=== PATIENT | female | born 1975 | race Hispanic/Latino ===

== ENCOUNTER 2019-09-19 12:06 | Emergency (ER) | payer SELFPAY ==
--- NOTE | ~2019-09-19 | CT_ITS ---
EXAMINATION: CT abdomen pelvis wo con DATE: 09/19/2019 12:52 INDICATION: Right lower quadrant abdominal pain. TECHNIQUE: Computed tomography (CT) of the abdomen and pelvis was performed without intravenous contr ast. Automated exposure control and iterative reconstruction technique were employed. The dose-length product was 651.11 mGy-cm. COMPARISON: 09/18/2016 FINDINGS: Lung bases are clear. Heart size is normal. No pericardial or pleural effusion. Diffuse mild hepatic steatosis with focal sparing along the gallbladder fossa. Gallbladder, spleen, pancreas, bilateral ad renal glands and kidneys are normal. Bowels including the appendix are normal. Bladder, anteverted ut erus and bilateral adnexa are unremarkable. No free intraperitoneal gas or fluid. No pathologically e nlarged abdominal or pelvic lymphadenopathy. Small fat-containing left inguinal hernia. Mild thoracol umbar spondylosis. IMPRESSION: 1. No acute intra-abdominal/pelvic process. Specifically no urolithiasis and normal gallbladder and a ppendix. Reviewed, dictated and finalized at location A. IMPRESSION: 1. No acute intra-abdominal/pelvic process. Specifically no urolithiasis and no rmal gallbladder and appendix.
--- NOTE | 2019-09-19 12:11 | PC.NURSE ---
Patient to bathroom to provide urine at this time.
[2019-09-19 12:12] VITALS: BP 147/68; PULSE 79; RESP 15; TEMP 36.7; O2SAT 99
[2019-09-19] MEDS: SODIUM CHLORIDE 0.9% IV 1,000 ML 999 ML IV CONT (12:32)
[2019-09-19] MEDS: ONDANSETRON INJ 4 MG/2 ML VIAL IV PUSH (12:32)
[2019-09-19] MEDS: FAMOTIDINE 20 MG/2 ML VIAL IV PUSH (12:32)
[2019-09-19 12:34] LABS: Basophils Percent Auto 0.6 % (0.2-1.2); Eosinophils Absolute Auto 0.1 K/mm3 (0-0.3); Hematocrit 41.5 % (37.0-47.0); Hemoglobin 13.6 g/dL (12.0-15.0); Immature Granulocyte Absolute 0.03 K/mm3 (0.00-0.031); Immature Granulocyte Percent A 0.4 % (0-0.5); Lymphocytes Absolute Auto 1.84 K/mm3 (0.9-3.2); Lymphocytes Percent Auto 26.1 % (18.3-44.2); Mean Corpuscular HGB Conc 32.8 g/dl (32-36); Mean Corpuscular Hemoglobin 28.1 pg (26-34); Mean Corpuscular Volume 85.7 fl (80-100); Monocytes Absolute Auto 0.5 K/mm3 (0.1-0.6); Monocytes Percent Auto 7.1 % (2.6-8.5); Neutrophils Absolute Auto 4.6 K/mm3 (1.3-6.7); Neutrophils Percent Auto 64.8 % (45.5-73.1); Platelet Count Result 295 k/mm3 (150-375); Red Blood Count 4.84 M/mm3 (4.2-5.4); Red Cell Distribution Width 11.9 % (11.5-14.5)
[2019-09-19 12:38] LABS: Add Urine Microscopic? YES; Appearance Urine Clear (Clear); Bacteria Urine Trace /hpf; Bilirubin Urine Negative (Negative); Blood Urine Negative (Negative); Calcium Oxalate Crystals Urine Present /hpf; Color Urine Yellow (Yellow); Glucose Urine UA 3+ mg/dL (Negative); Ketones Urine Negative (Negative); Leukocyte Esterase Ur Negative LEU/UL (Negative); Mucus Urine Few /lpf; Nitrate Urine Negative (Negative); Protein Urine 1+ mg/dL (Negative); Squamous Epithelial Cell Urine Many /hpf (Few); Urobilinogen Urine Negative mg/dL (<2.0); WBC Urine 0-3 /hpf
[2019-09-19 12:47] LABS: Alanine Aminotransferase 28 U/L (4-35); Albumin Level 4.6 g/dL (3.5-5.1); Alkaline Phosphatase 60 U/L (38-126); Aspartate Amino Transferase 31 U/L (14-36); Bilirubin,Total 0.5 mg/dL (0.2-1.3); Blood Urea Nitrogen 9 mg/dL (7-17); Calcium 9.7 mg/dL (8.4-10.2); Carbon Dioxide 23 mmol/L (22-30); Chloride 99 mmol/L (98-107); Estimated CRCL calculation 154 ml/min; Estimated Glomerular Filt Rate > 60; Glucose 201 mg/dL (65-105); Lipase 100 U/L (23-300); Potassium 4.1 mmol/L (3.4-5.0); Sodium 134 mmol/L (137-145)
--- NOTE | 2019-09-19 13:25 | ED.ABDPAIN ---
HPI - Abdominal Pain General Chief Complaint: Abdominal Pain Stated Complaint: Abd pain Time Seen by Provider: 09/19/19 12:12 Source: patient Mode of arrival: ambulatory Limitations: no limitations History of Present Illness HPI narrative: Patient is a 43-year-old female who presents with 1 week duration of right flank pain for the last week noting intermittent sharp pain that worsened today. Patient notes associated nausea and states she has had some urinary symptoms such as frequency. Patient has not taken anything for symptoms a scheduled to see primary care tomorrow. Patient denies any bowel habit changes rectal bleeding melena or URI symptoms Related Data Home Medications Medication Instructions Recorded Confirmed atorvastatin 09/19/19 citalopram mg 09/19/19 pioglitazone mg 09/19/19 Allergies Allergy/AdvReac Type Severity Reaction Status Date / Time No Known Allergies Allergy Verified 09/18/16 14:55 Review of Systems Review of Systems: All systems reviewed & are unremarkable except as noted in HPI and below PMFSH Past Medical History Medical History (Updated 09/19/19 @ 13:40 by Erwin Urias PA-C) Hypertension Surgical History Surgical History (Updated 09/19/19 @ 13:27 by Erwin Urias PA-C) H/O tubal ligation Social History Social History Gender identity (if verbalized by the patient): Female Exam Narrative: Exam Narrative: GENERAL: Well-appearing, well-nourished, and in no acute distress. HEAD: Normocephalic, atraumatic. EYES: PERRLA and EOMI. ENT: Nares clear, no rhinorrhea or epistaxis. Mucous membranes moist. CHEST: Clear to auscultation. No respiratory distress. No wheezes rales or rhonchi HEART: Regular rate and rhythm. No murmur heard. Normal peripheral pulses. ABDOMEN: Soft, nontender, nondistended EXTREMITIES: Normal range of motion. No edema. SKIN: Warm, dry, no rash. NEURO: No focal deficits. Alert and oriented x3. Cranial nerves II through XII grossly intact PSYCH: Normal mood and affect. Course Course Emergency Course: Patient in the room in no distress aware of case findings treatment plan and diagnosis agreeing to follow-up as directed Vital Signs Vital signs: Vital Signs Temperature 98.1 F 09/19/19 12:12 Pulse Rate 79 09/19/19 12:12 Respiratory Rate 15 09/19/19 12:12 Blood Pressure 147/68 H 09/19/19 12:12 Pulse Oximetry 99 09/19/19 12:12 Temperature 98.1 F 09/19/19 12:12 Pulse Rate 79 09/19/19 12:12 Respiratory Rate 15 09/19/19 12:12 Blood Pressure 147/68 H 09/19/19 12:12 Pulse Oximetry 99 09/19/19 12:12 MDM - Abdominal Pain MDM Narrative Medical decision making narrative: Patient with flank pain of unknown etiology afebrile nontoxic-appearing no distress felt appropriate for outpatient reevaluation scheduled to see primary care tomorrow provided with reasons to return. No high risk changes in the blood work or imaging Lab Data Result diagrams: 09/19/19 12:28 09/19/19 12:28 Labs: Lab Results 09/19/19 09/19/19 09/19/19 Range/Units 12:28 12:28 12:28 WBC 7.0 (4.5-10.0) K/mm3 RBC 4.84 (4.2-5.4) M/mm3 Hgb 13.6 (12.0-15.0) g/dL Hct 41.5 (37.0-47.0) % MCV 85.7 (80-100) fl MCH 28.1 (26-34) pg MCHC 32.8 (32-36) g/dl RDW 11.9 (11.5-14.5) % Plt Count 295 (150-375) k/mm3 MPV 11.0 H (7.4-10.4) fl Immature Gran % (Auto) 0.4 (0-0.5) % Neut % (Auto) 64.8 (45.5-73.1) % Lymph % (Auto) 26.1 (18.3-44.2) % [place] % (Auto) 7.1 (2.6-8.5) % Eos % (Auto) 1.0 (0-4.4) % Baso % (Auto) 0.6 (0.2-1.2) % Lymph # (Auto) 1.84 (0.9-3.2) K/mm3 [place] # (Auto) 0.5 (0.1-0.6) K/mm3 Eos # (Auto) 0.1 (0-0.3) K/mm3 Baso # (Auto) 0.0 (0.0-0.1) K/mm3 Abs Immat Gran (auto) 0.03 (0.00-0.031) K/mm3 Absolute Neuts (auto) 4.6 (1.3-6.7) K/mm3 Absolute Nucl
[2019-09-19 13:50] VITALS: BP 108/47; PULSE 64; RESP 12; O2SAT 98
[2019-09-19] MEDS: KETOROLAC 30 MG/ML VIAL (*BKC) IV PUSH (13:52)
== END 2019-09-19 13:52 | disposition home or self-care (01) ==
PROVIDERS: Emergency Medicine Emergency Medical Services; Emergency Provider Emergency Medicine
DX: R10.9 Unspecified abdominal pain (principal); I10 Essential (primary) hypertension
CPT/HCPCS: 36415; 74176; 80053; 81001; 81025; 83690; 85025; 96361; 96365; 96375; 99284; J0131; J1885; J2405; J7030

== ENCOUNTER 2020-05-07 13:25 | Emergency (ER) | payer SELFPAY ==
[2020-05-07 13:29] VITALS: BP 149/73; PULSE 84; RESP 20; TEMP 36.3; O2SAT 97
== END 2020-05-07 14:00 | disposition left against medical advice (07) ==
LOC: ANHED 15:27
DX: M25.511 Pain in right shoulder (principal)
CPT/HCPCS: 99199

== ENCOUNTER 2021-03-26 11:11 | Emergency (ER) | payer SELFPAY ==
--- NOTE | ~2021-03-26 | XR_ITS ---
EXAMINATION: XR chest 1V portable EXAM DATE: 03/26/2021 12:04 INDICATION: Persistent cough. TECHNIQUE: Portable AP frontal chest x-ray was obtained. There is no prior study for comparison. FINDINGS: The lungs are clear. There are no pleural effusions. The cardiomediastinal silhouette is within normal limits. There is no pneumothorax suspected. The bones and soft tissues are unremarkab le. IMPRESSION: No acute cardiopulmonary findings. Reviewed, dictated and finalized at location A.
--- NOTE | ~2021-03-26 | US_ITS ---
EXAMINATION: US abdomen limited EXAM DATE: 03/26/2021 12:03 INDICATION: RUQ abd pain eval for selene RUQ PAIN. TECHNIQUE: Multiple grayscale and Doppler images of the abdomen right upper quadrant were obtained (b y a technologist who performed the scan) and subsequently reviewed. There is no prior study for juanito kim. FINDINGS: The pancreatic head and body are normal in appearance. The pancreatic tail is not visualized. There is echogenic liver parenchyma, hepatic steatosis. There are no focal liver lesions identified. Th ere is no evidence of intrahepatic biliary duct dilation. Portal venous flow was seen in the hepatop edal, normal direction and has normal Doppler waveform. No right-sided hydronephrosis. Common bile duct measures 3 mm, which is normal. The gallbladder wall is normal in thickness, with ex pected amount of distention. No sonographic evidence of pericholecystic fluid. There is no cholelit hiases. Technologist performing exam reports patient did not demonstrate sonographic Rendon's sign. Please note that this sign is less reliable in patients who have received pain medication. IMPRESSION: 1. Hepatic steatosis. Reviewed, dictated and finalized at location A. IMPRESSION: 1. Hepatic steatosis.
[2021-03-26 11:16] VITALS: BP 127/53; PULSE 66; RESP 16; TEMP 36.7; O2SAT 100
--- NOTE | 2021-03-26 11:32 | ED.URI ---
HPI - URI/Sore Throat General Chief Complaint: Nausea/Vomiting/Diarrhea Stated Complaint: chest pain, coughing Time Seen by Provider: 03/26/21 11:16 History of Present Illness HPI Narrative: Patient presents with not feeling well. Patient reports she started to have right-sided abdominal pain associated with nausea, vomiting, diarrhea. Symptoms started approximately 7 days ago yesterday she noted fevers cough and congestion concerned so she came into the ER for evaluation. Reports she has completed her Covid vaccination series and was diagnosed with Covid 6 months ago. Related Data Home Medications Medication Instructions Recorded Confirmed atorvastatin 09/19/19 citalopram mg 09/19/19 pioglitazone mg 09/19/19 Allergies Allergy/AdvReac Type Severity Reaction Status Date / Time No Known Allergies Allergy Verified 09/18/16 14:55 Review of Systems Review of Systems: CONSTITUTIONAL: Denies fever, chills, or sweats. EYES: Denies visual changes, redness, or discharge. ENT: Denies rhinorrhea, congestion, sore throat, or otalgia. CARDIOVASCULAR: Denies chest pain, palpitations, or edema. RESPIRATORY: Reports cough and shortness of breath GASTROINTESTINAL: Reports abdominal pain nausea, vomiting, diarrhea GENITOURINARY: Denies dysuria or hematuria. SKIN: Denies rash or itching. MUSCULOSKELETAL: Denies back pain, joint pain, or myalgia. NEUROLOGIC: Denies headache, numbness, dizziness, or weakness. PSYCHIATRIC: Denies anxiety or depression. All systems reviewed & are unremarkable except as noted in HPI and below PMFSH Past Medical History Medical History Hypertension Surgical History Surgical History H/O tubal ligation Social History Social History Gender identity (if verbalized by the patient): Female Exam Narrative: GENERAL: Well-appearing, well-nourished, and in no acute distress. HEAD: Normocephalic, atraumatic. EYES: PERRLA and EOMI. ENT: Nares clear, no rhinorrhea or epistaxis. Mucous membranes moist. NECK: Supple. No masses. No JVD CHEST: Clear to auscultation. No respiratory distress. No wheezes rales or rhonchi HEART: Regular rate and rhythm. No murmur heard. Normal peripheral pulses. ABDOMEN: Moderate tenderness in the right upper quadrant no rebound or guarding soft, nondistended bowel sounds. EXTREMITIES: Normal range of motion. No edema. SKIN: Warm, dry, no rash. NEURO: No focal deficits. Alert and oriented x3. PSYCH: Normal mood and affect. Course Reevaluation(s) Reevaluation #1: Patient resting comfortably results and plan reviewed with patient. Patient comfortable with outpatient plan. Date: 03/26/21 Time: 12:39 Vital Signs Vital signs: Vital Signs Temperature 36.7 C 03/26/21 11:16 Pulse Rate 66 03/26/21 11:16 Respiratory Rate 16 03/26/21 11:16 Blood Pressure 127/53 L 03/26/21 11:16 Pulse Oximetry 100 03/26/21 11:16 Temperature 36.7 C 03/26/21 11:16 Pulse Rate 74 03/26/21 14:08 Respiratory Rate 16 03/26/21 14:08 Blood Pressure 122/76 03/26/21 14:08 Pulse Oximetry 98 03/26/21 14:08 MDM - URI/Sore Throat MDM Narrative Medical decision making narrative: H&P as above, vss, pt looks clinically well, exam with tenderness in right upper quadrant, labs with mild elevation LFTs, Covid swab pending, img unremarkable for acute process, additional labs/img considered, symptomatic relief available as needed, on reevaluation pt continues to looks clinically well. Suspect viral process, dns perforation, pancreatitis, cholecystitis, severe sepsis, small bowel obstruction. plan to tx/monitor as op w/ pcm f/u findings/plan discussed with pt, pt agree/comfortable with plan, return precautions given Lab Data Result diagrams: 03/26/21 11:26 03/26/21 11:26 Labs: Lab Result
[2021-03-26 11:49] LABS: Alanine Aminotransferase 60 U/L (4-35); Albumin Level 4.6 g/dL (3.5-5.1); Alkaline Phosphatase 60 U/L (38-126); Anion Gap 10 mmol/L (8-16); Aspartate Amino Transferase 55 U/L (14-36); Bilirubin,Total 0.7 mg/dL (0.2-1.3); Blood Urea Nitrogen 11 mg/dL (7-17); Calcium 8.8 mg/dL (8.4-10.2); Carbon Dioxide 25 mmol/L (22-30); Chloride 101 mmol/L (98-107); Estimated CRCL calculation 150 ml/min; Estimated Glomerular Filt Rate > 60; Glucose 163 mg/dL (65-110); Lipase 86 U/L (23-300); Sodium 136 mmol/L (137-145)
[2021-03-26 12:18] LABS: Basophils Percent Auto 0.4 % (0.2-1.2); Eosinophils Absolute Auto 0.1 K/mm3 (0-0.3); Eosinophils Percent Auto 1.7 % (0-4.4); Hematocrit 37.8 % (37.0-47.0); Hemoglobin 13.2 g/dL (12.0-15.0); Immature Granulocyte Absolute 0.03 K/mm3 (0.00-0.031); Immature Granulocyte Percent A 0.4 % (0-0.5); Lymphocytes Absolute Auto 1.92 K/mm3 (0.9-3.2); Lymphocytes Percent Auto 25.2 % (18.3-44.2); Mean Corpuscular HGB Conc 34.9 g/dl (32-36); Mean Corpuscular Hemoglobin 29.4 pg (26-34); Mean Corpuscular Volume 84.2 fl (80-100); Mean Platelet Volume 10.4 fl (7.4-10.4); Monocytes Absolute Auto 0.5 K/mm3 (0.1-0.6); Neutrophils Percent Auto 65.3 % (45.5-73.1); Platelet Count Result 308 k/mm3 (150-375); Red Blood Count 4.49 M/mm3 (4.2-5.4); Red Cell Distribution Width 11.5 % (11.5-14.5); White Blood Count 7.6 K/mm3 (4.5-10.0)
[2021-03-26 12:40] LABS: Add Urine Microscopic? YES; Appearance Urine Cloudy (Clear); Bacteria Urine 4+ /hpf; Bilirubin Urine Negative (Negative); Blood Urine Negative (Negative); Color Urine Yellow (Yellow); Glucose Urine UA 1+ mg/dL (Negative); Ketones Urine Negative (Negative); Leukocyte Esterase Ur Trace LEU/UL (Negative); Nitrate Urine Positive (Negative); Protein Urine 1+ mg/dL (Negative); RBC Urine 0-2 /hpf (0-2); Specific Grav Ur 1.025 (1.001-1.035); Squamous Epithelial Cell Urine Many /hpf (Few); Urobilinogen Urine Negative mg/dL (<2.0); WBC Urine 21-30 /hpf
[2021-03-26] MEDS: KETOROLAC 15 MG/ML VIAL (*BKC) IV PUSH (13:01)
[2021-03-26] MEDS: ONDANSETRON INJ 4 MG/2 ML VIAL IV PUSH (13:01)
[2021-03-26] MEDS: SODIUM CHLORIDE 0.9% IV 1,000 ML 999 ML IV CONT (13:01)
[2021-03-26 14:08] VITALS: BP 122/76; PULSE 74; RESP 16; O2SAT 98
[2021-03-27 16:55] LABS: SARS-CoV-2 RNA PCR Negative
== END 2021-03-26 14:10 | disposition home or self-care (01) ==
PROVIDERS: Emergency Provider Emergency Medicine
DX: N39.0 Urinary tract infection, site not specified (principal); R10.11 Right upper quadrant pain; R11.2 Nausea with vomiting, unspecified; Z20.822 Contact with and (suspected) exposure to COVID-19; Z86.16 Personal history of COVID-19; I10 Essential (primary) hypertension; K76.0 Fatty (change of) liver, not elsewhere classified
CPT/HCPCS: 36415; 71045; 76705; 80053; 81001; 81025; 83690; 85025; 87077; 87086; 87088; 87186; 96361; 96374; 96375; 99284; C9803; J1885; J2405; J7030; U0003; U0005

== ENCOUNTER 2022-06-17 12:22 | Emergency (ER) | payer SELFPAY ==
--- NOTE | ~2022-06-17 | XR_ITS ---
XR chest 2V DATE: 06/17/2022 13:14 INDICATION: Left chest pain. History of hypertension, diabetes. TECHNIQUE: AP and lateral views COMPARISON: 03/26/2021 portable AP chest FINDINGS: Normal heart size. No hilar or mediastinal enlargement. No pulmonary infiltrate or consolid ation, pleural effusion or pulmonary vascular congestion or pneumothorax. Included skeletal structures are unremarkable. IMPRESSION: No active cardiopulmonary disease Reviewed, dictated and finalized at location B. [employer]
--- NOTE | 2022-06-17 12:22 | ECG_ITS ---
Measurements Intervals [place] Rate: 88 P: 57 WI: 154 QRS: 35 QRSD: 72 T: 55 QT: 349 QTc: 423 Interpretive Statements SINUS RHYTHM NO PREVIOUS ECG AVAILABLE FOR COMPARISON Electronically Signed On 06-17-2022 18:00:52 DOOR PULLER by Eduardo Reddy M.D.
[2022-06-17 12:24] VITALS: BP 127/77; PULSE 99; RESP 16; TEMP 36.5; O2SAT 100
[2022-06-17 13:07] LABS: Basophils Absolute Auto 0.1 K/mm3 (0.0-0.1); Basophils Percent Auto 0.6 % (0.2-1.2); Eosinophils Absolute Auto 0.1 K/mm3 (0-0.3); Eosinophils Percent Auto 0.8 % (0-4.4); Hematocrit 44.9 % (37.0-47.0); Hemoglobin 14.9 g/dL (12.0-15.0); Immature Granulocyte Absolute 0.03 K/mm3 (0.00-0.031); Immature Granulocyte Percent A 0.3 % (0-0.5); Lymphocytes Absolute Auto 2.41 K/mm3 (0.9-3.2); Lymphocytes Percent Auto 27.6 % (18.3-44.2); Mean Corpuscular HGB Conc 33.2 g/dl (32-36); Mean Corpuscular Hemoglobin 28.8 pg (26-34); Mean Corpuscular Volume 86.8 fl (80-100); Mean Platelet Volume 9.9 fl (7.4-10.4); Monocytes Absolute Auto 0.6 K/mm3 (0.1-0.6); Monocytes Percent Auto 6.6 % (2.6-8.5); Neutrophils Absolute Auto 5.6 K/mm3 (1.3-6.7); Neutrophils Percent Auto 64.1 % (45.5-73.1); Platelet Count Result 350 k/mm3 (150-375); Red Blood Count 5.17 M/mm3 (4.2-5.4); Red Cell Distribution Width 11.9 % (11.5-14.5); White Blood Count 8.7 K/mm3 (4.5-10.0)
[2022-06-17 13:17] LABS: Alanine Aminotransferase 58 U/L (6-35); Alkaline Phosphatase 71 U/L (38-126); Anion Gap 12 mmol/L (8-16); Aspartate Amino Transferase 52 U/L (14-36); Bilirubin,Total 0.7 mg/dL (0.2-1.3); Blood Urea Nitrogen 10 mg/dL (7-17); Calcium 8.7 mg/dL (8.4-10.2); Carbon Dioxide 20 mmol/L (22-30); Chloride 101 mmol/L (98-107); Estimated CRCL calculation 146 ml/min; Estimated Glomerular Filt Rate > 60; Glucose 132 mg/dL (65-110); Lipase 120 U/L (23-300); Potassium 3.7 mmol/L (3.4-5.0); Sodium 133 mmol/L (137-145)
[2022-06-17 13:26] LABS: Partial Thromboplastin Time 31.6 SECONDS (22.3-36.8); Prothrombin Time 13.1 Seconds (11.1-14.7)
[2022-06-17 13:29] LABS: Troponin I < 0.012 ng/mL (0.000-0.034)
[2022-06-17 16:12] LABS: Troponin I < 0.012 ng/mL (0.000-0.034)
[2022-06-17 18:29] VITALS: BP 129/66; PULSE 81; TEMP 36.2; O2SAT 100
[2022-06-17 18:58] LABS: Troponin I 0.023 ng/mL (0.000-0.034)
[2022-06-17 20:03] VITALS: BP 135/77; PULSE 84; RESP 14; O2SAT 98
--- NOTE | 2022-06-17 20:25 | ED.CHESTPAIN ---
HPI - Chest Pain General Chief Complaint: Chest Pain Stated Complaint: chest pain Time Seen by Provider: 06/17/22 20:25 Source: patient and family Mode of arrival: ambulatory Limitations: no limitations History of Present Illness HPI narrative: 46 years old female brought to the emergency room by private car from work because of left chest pain that started this morning. While vacuuming. History of left shoulder pain of unknown etiology, was seen by a chiropractor few days ago, had x-ray done at that time, was seen by her family physician yesterday and started on Flexeril and to follow-up with her in 2 weeks. Patient denies any fever, chills, nausea, vomiting, shortness of breath, back pain. Patient reports the shoulder pain and left chest pain worse with certain movement, position. And get better laying down still.. Patient does not smoke, no family history of coronary artery disease, history of diabetes and hyperlipidemia. Related Data Home Medications Medication Instructions Recorded Confirmed atorvastatin 40 mg tablet 09/19/19 citalopram 40 mg tablet mg 09/19/19 pioglitazone 30 mg tablet mg 09/19/19 Allergies Allergy/AdvReac Type Severity Reaction Status Date / Time No Known Allergies Allergy Verified 09/18/16 14:55 Review of Systems Review of Systems: All systems reviewed & are unremarkable except as noted in HPI and below PMFSH Past Medical History Medical History Hypertension Surgical History Surgical History H/O tubal ligation Social History Social History Gender identity (if verbalized by the patient): Female Exam Narrative: General appearance: Well-developed, well-nourished Skin: Normal color Head: Normocephalic, nontraumatic Eyes: Clear conjunctiva ENT: Oropharynx normal, ears normal, nose normal Neck: Supple, nontender Chest and respiratory: Airway patent, no respiratory distress, no accessory muscle use, diffuse tenderness left upper chest with light palpation, no bruises, no swelling or rash. Heart: Regular rate/rhythm Abdomen: Soft, nontender, no organomegaly, quiet bowel sounds Vascular: Normal peripheral pulses, normal capillary refill. Musculoskeletal: Painful range of motion of left shoulder, no swelling, no bruises, no rash. Neurologic: Alert and oriented ?3, SPINNER OPEN END is normal as tested, no gross motor deficit Course Course Emergency Course: Left shoulder and left chest pain. Musculoskeletal cause is my concern. Patient started yesterday on Flexeril, does not take any Tylenol or anti-inflammatory medication at home yet. Work-up today showed no significant finding, cardiac score is 2. I plan to discharge patient home, excuse off work for 2 days, start naproxen and follow-up with family physician for further evaluation of the left shoulder which probably need MRI to rule out the possibility of rotator cuff injury Vital Signs Vital signs: Vital Signs Temperature 36.5 C 06/17/22 12:24 Pulse Rate 99 06/17/22 12:24 Respiratory Rate 16 06/17/22 12:24 Blood Pressure 127/77 06/17/22 12:24 Pulse Oximetry 100 06/17/22 12:24 Oxygen Delivery Room Air 06/17/22 12:24 Temperature 36.2 C L 06/17/22 18:29 Pulse Rate 84 06/17/22 20:03 Respiratory Rate 14 06/17/22 20:03 Blood Pressure 135/77 06/17/22 20:03 Pulse Oximetry 98 06/17/22 20:03 Oxygen Delivery Room Air 06/17/22 12:24 MDM - Chest Pain Differential Diagnosis Differential diagnosis: Likely atypical chest pain, costochondritis and chest pain Lab
== END 2022-06-17 20:49 | disposition home or self-care (01) ==
PROVIDERS: Emergency Medicine; Emergency Provider Emergency Medicine
DX: R07.9 Chest pain, unspecified (principal); I10 Essential (primary) hypertension
CPT/HCPCS: 36415; 71046; 80053; 83690; 84484; 85025; 85610; 85730; 93005; 99284

== ENCOUNTER 2023-03-11 13:44 | Emergency (ER) | payer SELFPAY ==
--- NOTE | 2023-03-11 13:46 | ED.URI ---
HPI - URI/Sore Throat General Chief Complaint: Upper Respiratory Infection Stated Complaint: throat sore, headache,urinary pain Time Seen by Provider: 03/11/23 13:46 Source: patient Mode of arrival: ambulatory Limitations: no limitations History of Present Illness HPI Narrative: patient is a 47-year-old female that presents with sore throat for 2 days with headache and congestion. Patient also reports return of burning with urination since yesterday. Denies any fever, chills, ear pain, cough, nausea, vomiting, diarrhea, low back pain. Denies any vaginal itching or discharge. patient was treated with Macrobid 02/09 for UTI. Related Data Home Medications Medication Instructions Recorded Confirmed citalopram 40 mg tablet mg 09/19/19 pioglitazone 30 mg tablet 30 mg PO DAILY 09/19/19 atorvastatin 80 mg tablet mg 03/11/23 Allergies Allergy/AdvReac Type Severity Reaction Status Date / Time No Known Allergies Allergy Verified 03/11/23 13:46 Review of Systems Review of Systems: All systems reviewed & are unremarkable except as noted in HPI and below Constitutional: Constitutional: Denies body ache(s), Denies chills, Denies fatigue, Denies fever(s), Reports headache(s), Denies malaise and Denies weakness Eyes: Eyes: Denies blurry vision, Denies itchy eyes and Denies loss of vision ENT: Denies otalgia, Denies headache(s), Reports nasal congestion, Denies sinus pain and Reports sore throat Cardiovascular: Cardiovascular: Denies chest pain, Denies irregular heart rhythm and Denies dyspnea Respiratory: Respiratory: Denies cough and Denies dyspnea Gastrointestinal: Gastrointestinal: Denies abdominal pain, Denies diarrhea, Denies nausea and Denies vomiting Genitourinary: Genitourinary: Denies hematuria, Reports nocturia, Reports dysuria, Denies flank pain, Reports urinary urgency, Denies vaginal odor and Denies vaginal pruritus Musculoskeletal: Musculoskeletal: Denies back pain, Denies myalgias and Denies arthralgias Integumentary/Breasts: Skin/Breast: Denies pruritus and Denies rash Neurologic: Denies headache(s), Denies loss of vision and Denies weakness Psychiatric: Psychiatric: Reports no additional psychiatric complaints Endocrine: Endocrine: Denies fatigue Allergic/Immunologic: Allergic/Immunologic: Denies itchy eyes PMFSH Past Medical History Medical History Hypertension Surgical History Surgical History H/O tubal ligation Social History Social History Gender identity (if verbalized by the patient): Female Comments At time of signature, agree with nursing past medical, surgical, social and family history. There is no relevant family history pertinent to the presenting complaint. Exam Const: General: cooperative, healthy appearing, comfortable, no acute distress and well nourished Nutritional Appearance: well nourished Orientation/consciousness: patient oriented x3 Limitations: no limitations HENMT: Head: normal to inspection, normocephalic and atraumatic Ears: hearing grossly normal bilaterally, external ears normal, TM's normal bilaterally, EAC's normal and no periauricular adenopathy Face/Nose/Sinus: Normal external nose present, Abnormal mucous membranes and turbinates present erythematous bilateral and diffuse, normal facial exam, sinuses nontender and face symmetric Face and sinus: normal facial exam, sinuses nontender and face symmetric Mouth: Yes Normal oral and palatal mucosa present, Yes lip normal, Yes tongue normal, Yes Normal salivary glands and ducts present, Yes oropharynx normal and Yes moist mucous membranes Teeth and gingiva: dentition normal Throat: uvula midline, abnormal tonsil bilateral erythema and exudates, posterior oropharynx abnormal erythema and postnasal drainage Eyes: General: appearance normal, both ey
[2023-03-11 14:01] VITALS: BP 150/79; PULSE 85; RESP 16; TEMP 37; O2SAT 100
== END 2023-03-11 14:36 | disposition home or self-care (01) ==
PROVIDERS: Emergency Provider Nurse Practitioner Family; PCP Physician Assistant
DX: R30.0 Dysuria (principal); J02.9 Acute pharyngitis, unspecified; I10 Essential (primary) hypertension
CPT/HCPCS: 81003; 87081; 87086; 87880; 99213; G0463